=== PATIENT | male | born 1955 | race Caucasian/White ===

== ENCOUNTER 2019-04-16 09:56 | Day surgery (SDC) | payer BC ==
[~2019-04-16 09:56] MED LIST: Bupivacaine 0.5% 50 ML MDV ONE; Lidocaine 1% with EPINEPHrine 1:100,000 50 ML MDV ONE
[2019-04-16] MEDS ORDERED: Acetaminophen 500 MG Tab PO ONE (10:15)
[2019-04-16] MEDS ORDERED: Dextrose 5%-Lactated Ringers 1,000 ML IV SCH (10:30)
[2019-04-16] MEDS ORDERED: fentaNYL 100 MCG/2 ML SDV ONE (10:36)
[2019-04-16] MEDS ORDERED: Propofol 200 MG/20 ML SDV ONE ×2 (10:36→12:28)
[2019-04-16] MEDS ORDERED: Midazolam 1 MG/ML 2 ML SDV ONE (10:36)
[2019-04-16] MEDS ORDERED: ceFAZolin 2 GM in Premix Bag 1 BAG IV ONE (11:30)
[2019-04-16] MEDS ORDERED: Sulfamethoxazole/Trimethoprim 800-160 MG Tab PO ONE (13:42)
--- NOTE | 2019-04-27 11:50 | OR ---
DATE OF PROCEDURE: 04/16/2019 SURGEON: Gómez Dunn MD PREOPERATIVE DIAGNOSIS: Large exophytic mass, superior aspect of right shoulder. POSTOPERATIVE DIAGNOSIS: Large exophytic mass, superior aspect of right shoulder. OPERATIVE PROCEDURE: Excision of large exophytic mass, superior aspect of the right shoulder, with layered closure ([id number]). ANESTHESIA: General. INDICATION FOR PROCEDURE: This is a 63-year-old male presenting with large exophytic mass on the superior aspect of his right shoulder. The plan is to proceed with excision of this. Potential risks including bleeding, infection, local recurrence, need for additional treatment following the removal were all reviewed, and the patient wishes to proceed. DETAILS OF PROCEDURE: The patient was taken to the operating room and placed in supine position. After general endotracheal anesthesia was induced, the right shoulder and surrounding areas were prepped and draped. An elliptical incision with the long axis of the ellipse running from an anterior to posterior direction was made and carried down through the skin and subcutaneous tissue. This maintained a small margin of normal skin around the lesion. The incision then continued downward where the mass was adhered somewhat to the underlying fascia. The mass was removed then with some of the underlying muscular fascia, below which it extended to, and then delivered from the field. The mass plus margin length was 5.5 cm, and the incision length ended up being 8 cm. The deeper soft tissues were then approximated with some 3-0 Vicryl stitch deep, which included reapproximation of the muscular fascia, some 4-0 Vicryl more superficial stitch, and then 5-0 Prolene skin stitch. Dressing was applied. The patient was taken to the recovery room in satisfactory condition. There were no evident complications. Gómez Dunn MD /[id number]
== END 2019-04-16 14:45 | disposition home or self-care (01) ==
LOC: JP.SDS 09:56
PROVIDERS: ATTEND Surgery
DX: C44.612 Basal cell carcinoma of skin of right upper limb, including shoulder (principal); I10 Essential (primary) hypertension; E66.01 Morbid (severe) obesity due to excess calories; Z68.41 Body mass index [BMI] 40.0-44.9, adult
CPT/HCPCS: 23073; 88305; A9270; J0690; J2250; J2704; J3010; J3490; J7121

== ENCOUNTER 2022-10-01 08:21 | Day surgery (SDC) | payer MEDICARE, BC ==
[~2022-10-01 08:21] MED LIST changes: -Lidocaine 1% with EPINEPHrine 1:100,000 50 ML MDV ONE; +Midazolam 1 MG/ML 2 ML SDV ONE; +Propofol 200 MG/20 ML SDV ONE; +fentaNYL 100 MCG/2 ML SDV ONE
[2022-10-01] MEDS ORDERED: Lactated Ringers 1,000 ML IV SCH (09:00)
[2022-10-01] MEDS ORDERED: Nozin Nasal Sanitizer NASBOTH ONE (09:00)
[2022-10-01] MEDS ORDERED: oxyCODONE 5 MG Tab PO PRN (09:10)
[2022-10-01] MEDS ORDERED: Docusate Sodium 100 MG Cap PO PRN (09:11)
[2022-10-01] MEDS ORDERED: Ondansetron 4 MG/2 ML SDV IVPUSH PRN (09:11)
[2022-10-01] MEDS ORDERED: ceFAZolin 2 GM in Sodium Chloride 0.9% 100 ML IV SCH (09:15)
[2022-10-01] MEDS ORDERED: Tranexamic Acid 1,000 MG in Sodium Chloride 0.9% 50 ML IV ONE (09:45)
[2022-10-01] MEDS ORDERED: ceFAZolin 2 GM in Premix Bag 1 BAG IV ONE (10:42)
[2022-10-01 11:30] LABS: BASOPHILS PERCENT AUTO 0.1 % (0.1-1.3); EOSINOPHILS ABSOLUTE AUTO 0.08 K/uL (0.00-0.40); HEMATOCRIT 40.4 % (38.4-49.7); HEMOGLOBIN 13.7 g/dL (12.9-16.9); IMMATURE GRAN PERCENT AUTO 0.2 % (0.0-0.7); LYMPHOCYTES ABSOLUTE AUTO 2.18 K/uL (0.8-3.3); LYMPHOCYTES PERCENT AUTO 26.4 % (11.4-47.7); MEAN CORPUSCULAR HEMOGLOBIN 32.7 pg (31.6-35.5); MEAN CORPUSCULAR HGB CONC 33.9 g/dL (31.6-35.5); MEAN CORPUSCULAR VOLUME 96.4 fL (81.4-99.0); MONOCYTES ABSOLUTE AUTO 0.44 K/uL (0.20-0.90); MONOCYTES PERCENT AUTO 5.3 % (3.3-12.6); NEUTROPHILS ABSOLUTE AUTO 5.53 K/uL (1.0-7.6); PLATELET COUNT,PLT 167 K/uL (130-375); RED BLOOD CELL COUNT 4.19 M/uL (4.14-5.76); WHITE BLOOD CELL COUNT,WBC 8.3 K/uL (3.2-11.0)
[2022-10-01 11:32] LABS: BASOPHILS ABSOLUTE AUTO 0.01 K/uL (0.00-0.10); IMMATURE GRAN ABSOLUTE AUTO 0.02 K/uL (0.00-0.23)
[2022-10-01 11:50] LABS: ALANINE AMINOTRANSFERASE,ALT 27 U/L (12-78); ALBUMIN 3.4 g/dL (3.4-5.0); ALKALINE PHOSPHATASE 64 U/L (46-116); ANION GAP 6.8 mmol/L (5.0-14.0); ASPARTATE AMNIOTRANSFERASE,AST 24 U/L (15-37); BILIRUBIN TOTAL 0.5 mg/dL (0.2-1.0); BLOOD UREA NITROGEN,BUN 21 mg/dL (7-18); CARBON DIOXIDE,CO2 28 mmol/L (21-32); CHLORIDE,CL 105 mmol/L (100-108); CREATININE 1.2 mg/dL (0.8-1.3); EST CRCL DRUG DOSING (CG) 55.08 mL/min; ESTIMATED GFR 66 mL/min (>60); GLUCOSE RANDOM 100 mg/dL (74-106); POTASSIUM,K 4.3 mmol/L (3.6-5.2); PROTEIN TOTAL,TP 6.8 g/dL (6.4-8.2); SODIUM,NA 140 mmol/L (140-148)
[2022-10-01] MEDS ORDERED: Propofol 200 MG/20 ML SDV ONE ×3 (12:28→14:03)
[2022-10-01] MEDS ORDERED: Midazolam 1 MG/ML 2 ML SDV ONE (12:34)
[2022-10-01] MEDS ORDERED: ePHEDrine 50 MG/ML SDV ONE (12:41)
[2022-10-01] MEDS ORDERED: Phenylephrine 1% 10 MG/ML SDV ONE (13:08)
[2022-10-01] MEDS ORDERED: Sodium Chloride 0.9% 10 ML ONE (13:08)
[2022-10-01] MEDS: Ketorolac 15 MG/ML SDV IVPUSH PRN (15:33)
[2022-10-01] MEDS: Morphine 2 MG/ML SYRINGE IVPUSH PRN (15:41)
[2022-10-01] MEDS: oxyCODONE 5 MG Tab PO PRN ×2 (16:16→22:18)
[2022-10-01] MEDS: Sodium Chloride 0.9% 1,000 ML IV SCH (16:17)
[2022-10-01] MEDS: Acetaminophen 325 MG Tab PO SCH ×2 (17:13→22:18)
[2022-10-01] MEDS: ceFAZolin 2 GM in Premix Bag 1 BAG IV SCH (19:42)
[2022-10-01] MEDS: Nozin Nasal Sanitizer NASBOTH SCH (20:10)
[2022-10-01] MEDS: Aspirin 325 MG Tab.EC PO SCH (20:10)
[2022-10-02] MEDS: Sodium Chloride 0.9% 1,000 ML IV SCH (00:59)
[2022-10-02] MEDS: Ketorolac 15 MG/ML SDV IVPUSH PRN ×2 (01:07→09:24)
[2022-10-02] MEDS: Morphine 2 MG/ML SYRINGE IVPUSH PRN (01:08)
[2022-10-02] MEDS: oxyCODONE 5 MG Tab PO PRN ×2 (04:43→12:05)
[2022-10-02] MEDS: Acetaminophen 325 MG Tab PO SCH ×3 (04:44→15:30)
[2022-10-02] MEDS: ceFAZolin 2 GM in Premix Bag 1 BAG IV SCH ×2 (04:44→12:05)
[2022-10-02] MEDS: Aspirin 325 MG Tab.EC PO SCH (08:07)
[2022-10-02] MEDS: Nozin Nasal Sanitizer NASBOTH SCH (08:07)
[2022-10-02] MEDS ORDERED: Non-Formulary Medication 1 Each (Amlodipine [Norvasc] 10 MG Tablet) PO SCH (09:00)
[2022-10-02] MEDS ORDERED: Lisinopril 20 MG Tab PO SCH (09:00)
[2022-10-02] MEDS ORDERED: amLODIPine 5 MG Tab PO SCH (09:00)
== END 2022-10-02 15:30 | disposition home or self-care (01) ==
LOC: JP.SDS 08:21 → JP.MS 09:19 → JP.SDS 10-02 15:30
PROVIDERS: ATTEND Specialist
DX: M16.12 Unilateral primary osteoarthritis, left hip (principal); I10 Essential (primary) hypertension; E66.9 Obesity, unspecified; Z79.899 Other long term (current) drug therapy; Z88.0 Allergy status to penicillin; Z88.1 Allergy status to other antibiotic agents; Z68.42 Body mass index [BMI] 45.0-49.9, adult
CPT/HCPCS: 27130; 36415; 72170; 80053; 85025; 97110; 97116; 97161; 97165; 97530; 97535; A9270; C1713; C1776; J0690; J1885; J2250; J2270; J2370; J2704; J3010; J3490; J7030; J7120